=== PATIENT | female | born 1940 | race Caucasian/White ===

== ENCOUNTER → 2019-09-25 16:05 | Outpatient (CLI) | payer MEDICARE ==
[2019-09-25 16:56] LABS: HEMATOCRIT 30.5 % (36.0-48.0); HEMOGLOBIN 9.6 g/dL (12-16); MCH 31.5 pg (26.0-34.0); MCHC 31.5 g/dL (31.0-37.0); PLATELET COUNT 243 10x3/uL (130-400); RBC 3.05 10x6/uL (4.00-5.40); RDW 13.4 % (11.5-14.5); WBC 5.9 10x3/uL (4.8-10.8)
[2019-09-25 17:30] LABS: EOSINOPHILS 1 % (0-7); LYMPHOCYTES 32 % (15-50); MONOCYTES 1 % (2-11); NEUTROPHILS 66 % (40-80); PLATELET ESTIMATE NORMAL
== END | disposition home or self-care (01) ==
LOC: D.LABREF 16:05
DX: E11.9 Type 2 diabetes mellitus without complications (principal); I10 Essential (primary) hypertension; C50.919 Malignant neoplasm of unspecified site of unspecified female breast

== ENCOUNTER → 2019-09-26 15:12 | Outpatient (CLI) | payer MEDICARE ==
[2019-09-26 15:56] LABS: HEMATOCRIT 29.6 % (36.0-48.0); HEMOGLOBIN 9.9 g/dL (12-16); LYMPHOCYTES 31.5 % (15-50); MCH 31.8 pg (26.0-34.0); MCHC 33.4 g/dL (31.0-37.0); MCV 95.2 fL (80.0-100.0); MEAN PLATELET VOLUME 12.7 fL (7.4-10.4); NEUTROPHILS 54.9 % (40-80); PLATELET COUNT 207 10x3/uL (130-400); RBC 3.11 10x6/uL (4.00-5.40); RDW 12.8 % (11.5-14.5); WBC 6.6 10x3/uL (4.8-10.8)
[2019-09-26 16:41] LABS: ALBUMIN 3.3 g/dL (3.4-5.0); ANION GAP 12.7 mmol/L (8-16); BILIRUBIN - TOTAL 0.19 mg/dL (0.2-1.3); CALCIUM 8.9 mg/dL (8.5-10.1); CARBON DIOXIDE 23.4 mmol/L (21.0-32.0); CREATININE - SERUM 1.4 mg/dL (0.6-1.3); POTASSIUM - SERUM 4.1 mmol/L (3.5-5.1); PROTEIN - SERUM 7.3 g/dL (6.4-8.2)
== END | disposition home or self-care (01) ==
LOC: D.LABREF 15:12
DX: E11.9 Type 2 diabetes mellitus without complications (principal); I10 Essential (primary) hypertension; C50.919 Malignant neoplasm of unspecified site of unspecified female breast